=== PATIENT | female | born 1980 | race Caucasian/White ===

== ENCOUNTER → 2021-10-15 07:36 | Outpatient (REF) | payer OTHER, SELFPAY ==
--- NOTE | 2021-10-15 07:30 | CA_ITS ---
Transthoracic Echocardiogram Patient (Last, First, Middle): Rolanda Tucker, Gender: Female Date of : 1980 Age: 41 Procedure Date: 10/15/2021 Procedure Type: Transthoracic Echocardiogram Location: [facility] Height: 162.56 cm Weight: 68.04 kg BSA: 1.73 m2 Heart Rate: bpm BP: 138 / 60 mmHg Annual Campaign Manager: NEERAJ Referring MD: Moraima Spann NP Symptoms: CARDIOTOXIC CHEMOTHERAPY Study Quality: Good ECG Rhythm: Sinus Conclusions: - The left ventricular systolic function is normal. The calculated ejection fraction is 56% by biplane method. - LV peak GLS -19.6% (normal). - No obvious valvular pathology seen on this study. Findings Left Ventricle Normal left ventricular cavity size. There is normal left ventricular wall thickness. The left ventricular systolic function is normal. The calculated ejection fraction is 56% by biplane method. There is no evidence of regional wall motion abnormalities. Diastolic function is normal for age. LV peak GLS -19.6% (normal). Right Ventricle Normal right ventricular cavity size and systolic function. Atria Both atria are normal in size. Aortic Valve There is a normal trileaflet aortic valve. There is no aortic valve stenosis. There is no aortic valve regurgitation. Mitral Valve The mitral valve appears normal. There is trace mitral valve regurgitation. There is no mitral valve stenosis. Pulmonic Valve The pulmonic valve is likely normal. Tricuspid Valve Normal tricuspid valve structure. There is trace tricuspid valve regurgitation. The pulmonary artery systolic pressure is normal. Great Vessels The aortic annulus, sinuses of valsalva, and asc aorta are normal in size. Venous The inferior vena cava is normal in size and collapses greater than 50% with inspiration. Pericardium/Pleural There is no evidence of pericardial effusion. Prior Study Comparison Changes noted compared to prior study dated: 07/13/2021. LVEF previously reported at 74%; current LVEF lower, but still within normal range. LV peak GLS previously reported at -20.8%; current value similar (prior study done at [facility]). Recommendations, Care & Conclusions No obvious valvular pathology seen on this study. Measurements 2D Linear Measurements IVSd: 0.87 0.6-0.9/0.6-1.0 cm LVIDd: 5.07 3.9-5.3/4.2-5.9 cm LVIDd Index: 2.93 2.4-3.2/2.2-3.1 cm/m2 LVIDs: 3.34 2.0-3.6 cm LVPWd: 0.74 0.7-1.1 cm LA Diam: 3.20 2.7-3.8/3.0-4.0 cm LAIDs Index: 1.85 1.5-2.3 cm/m2 LV Mass: 174.74 67-162/88-224 g LV Mass Index: 101.01 43-95/49-115 g/m2 LVOT Diam: 2.10 3.0+(-)1.3 cm 2D Systolic Function EF 4C: 53.70 >55% EF 2C: 56.30 >55% EF BiP: 55.60 >55% Mitral Valve MV Pk E: 0.67 MV PK A: 0.48 MV Decel Time: 308.00 E/A: 1.40 E'Lateral: 14.70 E'Medial: 9.36 E/E' Med: 7.20 E/E' Lat: 4.60 PHT: 90.00 MVA PHT: 2.44 Decel Crenshaw: 2.18 Aortic Valve AoV Pk Marty: 1.32 AoV Mn Marty: 0.92 AoV VTI: 0.26 AoV Pk Grad: 7.00 Aov Mn Grad: 4.00 GEMINI Cont.VTI: 2.87 LVOT LVOT Pk Marty: 0.99 LVOT Mn Marty: 0.58 LVOT VTI: 0.22 LVOT Pk Grad: 4.00 LVOT Mn Grad: 2.00 LVOT Diam: 2.10 LVOT Area: 3.46 Diastolic Function MV Pk E: 0.67 MV Pk A: 0.48 E/A: 1.40 E'Medial: 9.36 E/E' Med: 7.20 E' Laterial: 14.70 E/E' Lat: 4.60 Right Ventricle TAPSE (mm): 26.90 Tricuspid Valve TR Pk Marty: 2.51 TR Pk Grad: 25.00 RA Press: 3.00 RVSP: 28.00 Great Vessels Aorta Sinus of Valsalva: 3.06 2.0-3.[address] Ridge: 2.93 1.7-3.4 cm Ao Asc: 3.10 2.1-3.4 cm Ao Arch: 2.80 Updated in Other Vendor System with Status of Final Den Do MD electronically signed on 10/16/2021 1:38:49 PM with status of Final
== END ==
LOC: HO.CARD 07:36
PROVIDERS: Visit Provider Nurse Practitioner Family
DX: Z01.818 Encounter for other preprocedural examination (principal)
CPT/HCPCS: 93306